=== PATIENT | male | born 1960 | race Caucasian/White ===

== ENCOUNTER 2024-02-09 16:20 | Emergency (ER) | payer MEDICARE ==
[~2024-02-09] VITALS: Ht 175.3 cm; Wt 124.7 kg
[2024-02-09] MEDS ORDERED: Cephalexin Monohydrate 500 MG Cap PO ONE (16:45)
[2024-02-09] MEDS ORDERED: Trimethoprim/Sulfamethoxazole DS Tab PO ONE (16:45)
[2024-02-09] MEDS ORDERED: BACTRIM DS TAB1 EAC1 PO (16:47)
[2024-02-09] MEDS ORDERED: CEPH500 PO (16:47)
== END 2024-02-09 17:21 | disposition home or self-care (01) ==
LOC: ER 16:20
DX: L03.115 Cellulitis of right lower limb (principal); Z79.899 Other long term (current) drug therapy
CPT/HCPCS: 99282; A9270

== ENCOUNTER 2024-02-10 10:59 | Emergency (ER) | payer MEDICARE ==
[~2024-02-10] VITALS: Ht 175.3 cm; Wt 124.7 kg
[~2024-02-10 10:59] MED LIST: BACTRIM DS TAB1 EAC1 PO; CEPH500 PO
[2024-02-10] MEDS ORDERED: Ketorolac Tromethamine 15mg Vial IV ONE (12:20)
[2024-02-10 12:49] LABS: BASOPHILS ABSOLUTE AUTO 0.06 K/mm3 (0.00-0.23); BASOPHILS PERCENT AUTO 1 % (0-2); EOSINOPHILS ABSOLUTE AUTO 0.09 K/mm3 (0.00-0.68); EOSINOPHILS PERCENT AUTO 1 % (0-6); Hematocrit 40.8 % (37.0-53.0); Hemoglobin 13.1 g/dL (13.5-17.5); IMMATURE GRAN ABSOLUTE AUTO 0.08 K/mm3 (0.00-0.10); IMMATURE GRAN PERCENT AUTO 1 % (0-1); LYMPHOCYTES PERCENT AUTO 10 % (21-46); MONOCYTES ABSOLUTE AUTO 1.24 K/mm3 (0.16-1.47); MONOCYTES PERCENT AUTO 9 % (4-13); Mean Corpuscular HGB 28.2 pg (26.0-34.0); Mean Corpuscular HGB Conc 32.1 g/dL (31.5-36.5); Mean Corpuscular Volume 88 fL (80-100); Mean Platelet Volume 8.9 fL (9.1-12.4); NEUTROPHILS ABSOLUTE AUTO 10.47 K/mm3 (1.96-9.15); NEUTROPHILS PERCENT AUTO 79 % (41-73); Platelet Count 256 K/mm3 (150-400); RDW Coefficient Variation 13.8 % (11.7-14.2); RDW Standard Deviation 44.6 fL (35.1-46.3); Red Blood Cell Count 4.64 M/mm3 (4.30-5.90); White Blood Cell Count 13.24 K/mm3 (4.00-11.30)
[2024-02-10 13:16] LABS: Albumin/Globulin Ratio 0.7 (0.8-1.8); Bilirubin, Total 0.4 mg/dL (0.1-1.0); Bun/Creatinine Ratio 16.6 (12.0-20.0); C-REACTIVE PROTEIN, EXT RANGE 15.1 mg/dL (0.000-0.300); Calcium, Blood 8.9 mg/dL (8.5-10.1); Creatinine, Blood 0.97 mg/dL (0.60-1.20); Globulin, Blood 4.4 g/dL (2.2-4.0); Potassium, Blood 3.2 mmol/L (3.5-5.5); Total Protein, Blood 7.4 g/dL (6.4-8.2)
[2024-02-10] MEDS ORDERED: Piperacillin/Tazobactam Sod 4.5 GM in NS 100 ML IV ONE (13:40)
== END 2024-02-10 14:49 | disposition home or self-care (01) ==
LOC: ER 10:59
PROVIDERS: Physician Assistant
DX: L03.314 Cellulitis of groin (principal)
CPT/HCPCS: 72193; 80053; 85025; 86140; 96365-59; 96375; 99283-25; J1885; J2543; Q9967